=== PATIENT | female | born 1950 | race Caucasian/White ===

== ENCOUNTER → 2022-07-31 | Outpatient (CLI) | payer MEDICARE ==
--- NOTE | 2022-07-31 14:30 | BD ---
EXAMINATION TYPE: Axial Bone Density DATE OF EXAM: 07/31/2022 CLINICAL HISTORY: 71 years old Female. ICD-10 CODE: Z13.820 Screening for osteoporosis postmenopausa l female Height: 63.4 Weight: 134 FRAX RISK QUESTIONS: Family History (Parent hip fracture): unknown Glucocorticoids (More than 3mos): yes, since covid in (Ex: prednisone, prednisolone, methylprednisolone, dexamethasone, and hydrocortisone). History of Fracture in Adulthood: yes Secondary Osteoporosis: yes 3. Menopause before 45: yes, at 38 yrs old Current Tobacco Use: yes RISK FACTORS HISTORY OF: hx of lt shoulder separation with possible chip fx as an adult, broken left patella, resulting in TKR , as an adult History of Wrist Fracture: left collies fx as an adult, Family History of Osteoporosis: pt adopted. Postmenopausal woman: yes at age 38 yrs old with a total hyst. Take estrogen and/or progesterone medications: yes, premarin for several years Lost more than 2 inches in height since high school: yes Hyperparathyroidism: no Adrenal Insufficiency: no MEDICATIONS: Prednisone or other steroids: 2021, covid, albuterol inhaler, Additional Medications: zantac, omeprazole, Pepcid, vit d Additional History: loss of disc thickness, in cervical and thoracic spine, EXAM MEASUREMENTS: Bone mineral densitometry was performed using the [employer]. Bone mineral density as measured about the Lumbar spine is: ----- L1-L4(G/cm2): 1.076 T Score Values are as follows: ----- L1: -1.9 ----- L2: -2.3 ----- L3: -0.8 ----- L4: 1.0 ----- L1-L4: -0.9 Z Score Values are as follows: ----- L1: -0.1 ----- L2: -0.4 ----- L3: 1.1 ----- L4: 2.8 ----- L1-L4: 1.0 Bone mineral density is the first DEXA study at [facility] for this patient. Bone mineral density about the R hip (g/cm2): 0.856 Bone mineral density about the L hip (g/cm2): 0.845 T Score values are as follows: -----R Neck: -1.2 -----L Neck: -1.5 -----R Total: -1.2 -----L Total: -1.3 Z Score values are as follows: -----R Neck: 0.7 -----L Neck: 0.4 -----R Total: 0.5 -----L Total: 0.4 Bone mineral density is the first at [facility] for this patient. FRAX%s: The graph provided illustrates a 25.1% chance for a major osteoporotic fx and a 7.7% chance f or the hips probability for fx in 10 years time. IMPRESSION: Osteopenia (T Score between -2.5 and -1). There is slightly increased risk of fracture and the patient may be considered for treatment. Re-Screen 2-5 years. NOTE: T-SCORE=SD OF THE YOUNG ADULT MEAN.
--- NOTE | 2022-08-02 07:18 | MM ---
Reason for Exam: Screening (asymptomatic). Last mammogram was performed 2 year(s) and 3 month(s) ago. Patient History: Menarche at age 14. First Full-Term at age 23. Left ovary removed at age 38. Right ovary removed at age 38. Hysterectomy at age 38. Postmenopausal. 1999, Excisional Biopsy on the Left side. 1999, Excisional Biopsy on the Right side. Risk Values: Dulce 5 year model risk: 2.2%. NCI Lifetime model risk: 5.6%. Prior Study Comparison: 05/05/2020 Bilateral Screening Mammogram, [facility]. Tissue Density: The breast tissue is heterogeneously dense. This may lower the sensitivity of mammography. Findings: Analyzed By CAD. There is no suspicious group of microcalcifications or new suspicious mass in either breast. Benign-appearing calcifications within both breasts. Chronic nodularity within the left breast. Postbiopsy changes of both breasts. Overall Assessment: Benign, BI-RAD 2 Management: Screening Mammogram of both breasts in 1 year. A clinical breast exam by your physician is recommended on an annual basis and results should be correlated with mammographic findings. Electronically signed and approved by: Garrett Mcmillan D.O.
== END | disposition home or self-care (01) ==
LOC: RADMAMWWP 13:01
PROVIDERS: ATTEND Family Medicine
DX: Z12.31 Encounter for screening mammogram for malignant neoplasm of breast (principal); Z13.820 Encounter for screening for osteoporosis; Z78.0 Asymptomatic menopausal state; M85.89 Other specified disorders of bone density and structure, multiple sites
CPT/HCPCS: 77063; 77067; 77080

== ENCOUNTER → 2024-04-30 | Outpatient (CLI) | payer MEDICARE ==
--- NOTE | 2024-04-30 15:19 | MM ---
Reason for Exam: Screening (asymptomatic). Last mammogram was performed 1 year(s) and 9 month(s) ago. Patient History: Menarche at age 14. First Full-Term at age 23. Left ovary removed at age 38. Right ovary removed at age 38. Hysterectomy at age 38. Postmenopausal. 1999, Excisional Biopsy on the Left side. 1999, Excisional Biopsy on the Right side. Risk Values: Dulce 5 year model risk: 2.2%. NCI Lifetime model risk: 5.0%. Prior Study Comparison: 05/05/2020 Bilateral Screening Mammogram, [facility]. 07/31/2022 Bilateral MG 3D screening mammo w/cad, [facility]. Tissue Density: The breasts are heterogeneously dense, which may obscure small masses. Findings: Analyzed By CAD. Benign appearing vascular calcification bilaterally is redemonstrated. Stable distortion from prior excisional biopsy upper aspect right breast. There is no suspicious group of microcalcifications or new suspicious mass in either breast. Overall Assessment: Benign, BI-RAD 2 Management: Screening Mammogram of both breasts in 1 year. . Patient should continue monthly self-breast exams. A clinical breast exam by your physician is recommended on an annual basis. This exam should not preclude additional follow-up of suspicious palpable abnormalities. Note on Dulce scores and lifetime risk: 1. A Dulce score greater than 3% is considered moderate risk. If this is the case, consider specialist referral to assess eligibility for a risk reducing agent. 2. If overall lifetime risk for the development of breast cancer is 20% or higher, the patient may qualify for future screening with alternating mammogram and breast MRI. [facility], , 04/30/2024 3:16 PM. Electronically signed and approved by: Wesley Suggs M.D.
== END | disposition home or self-care (01) ==
LOC: RADMAMWWP 14:02
PROVIDERS: ATTEND Family Medicine
DX: Z12.31 Encounter for screening mammogram for malignant neoplasm of breast (principal); R92.333 Mammographic heterogeneous density, bilateral breasts; Z78.0 Asymptomatic menopausal state; Z90.722 Acquired absence of ovaries, bilateral
CPT/HCPCS: 77063; 77067